=== PATIENT | male | born 1975 | race Caucasian/White ===

== ENCOUNTER 2020-12-20 08:12 | Emergency (ER) | payer SELFPAY ==
[2020-12-20 08:23] VITALS: BP 119/83; PULSE 115; RESP 18; TEMP 36.6; O2SAT 98
--- NOTE | 2020-12-20 08:59 | ED.GENADULT ---
HPI - General Adult General Chief complaint: Skin/Abscess/Foreign Body Stated complaint: Right Toe Pain Time Seen by Provider: 12/20/20 08:47 Source: patient and RN notes reviewed Mode of arrival: ambulatory Limitations: no limitations History of Present Illness HPI narrative: Patient presents today complaining of pain to his right great. States the toenail fell off 2 weeks ago, but does not know how. He is a very poor historian. Cannot tell how long it has been that he has had pain, redness, or swelling. He has not been taking anything for his symptoms prior to arrival. MD complaint: Right great toe pain Related Data Allergies Allergy/AdvReac Type Severity Reaction Status Date / Time No Known Allergies Allergy Verified 12/20/20 08:38 Review of Systems Review of Systems: CONSTITUTIONAL: Denies body aches, fever, chills, or sweats. EYES: Denies visual changes, redness, or discharge. ENT: Denies rhinorrhea, congestion, sore throat, or otalgia. CARDIOVASCULAR: Denies chest pain, palpitations, or edema. RESPIRATORY: Denies cough or dyspnea. GASTROINTESTINAL: Denies abdominal pain, nausea, vomiting, or diarrhea. GENITOURINARY: Denies dysuria or hematuria. SKIN: Denies rash, itching, or wounds. MUSCULOSKELETAL: Denies back pain or myalgia.+ Great toe pain NEUROLOGIC: Denies headache, numbness, tingling, or weakness. PSYCH: Denies depression or anxiety. PMFSH Comments At time of signature, I have reviewed and agree with nursing past medical, surgical, social and family history unless otherwise noted. Please see nursing chart for further information. There is no relevant family history pertinent to the presenting complaint Exam Narrative: GENERAL: Well-appearing, well-nourished. Distress out of proportion to exam findings. Patient moaning in between falling asleep on the exam table HEAD: Normocephalic, atraumatic. EYES: EOMI. No redness or drainage. Conjunctivae normal. ENT: Mucous membranes pink and moist. NECK: Normal AROM. CHEST: No respiratory distress. EXTREMITIES: Right great toe: Erythematous and moderately edematous. Small amount of white purulent drainage at the toenail base. Toenail is missing. Toenail bed is dirty. SKIN: Warm, dry, no rash. Capillary refill normal. Normal skin turgor. NEURO: No focal deficits. Alert and oriented x3. Gait steady. PSYCH: Normal affect. No signs of depression or anxiety. Course Vital Signs Vital signs: Vital Signs Temperature 97.8 F 12/20/20 08:23 Pulse Rate 115 H 12/20/20 08:23 Respiratory Rate 18 12/20/20 08:23 Blood Pressure 119/83 12/20/20 08:23 Pulse Oximetry 98 12/20/20 08:23 Temperature 97.8 F 12/20/20 08:23 Pulse Rate 115 H 12/20/20 08:23 Respiratory Rate 18 12/20/20 08:23 Blood Pressure 119/83 12/20/20 08:23 Pulse Oximetry 98 12/20/20 08:23 Reviewed. Pt has been instructed to follow up with his PCP regarding his elevated blood pressure today. Medical Decision Making Differential Diagnosis Differential Diagnosis: Cellulitis, skin avulsion Vital Signs Vital Signs: Vital Signs Temperature 97.8 F 12/20/20 08:23 Pulse Rate 115 H 12/20/20 08:23 Respiratory Rate 18 12/20/20 08:23 Blood Pressure 119/83 12/20/20 08:23 Pulse Oximetry 98 12/20/20 08:23 Temperature 97.8 F 12/20/20 08:23 Pulse Rate 115 H 12/20/20 08:23 Respiratory Rate 18 12/20/20 08:23 Blood Pressure 119/83 12/20/20 08:23 Pulse Oximetry 98 12/20/20 08:23 Critical Care Time Critical Care Time Critical Care Time: No Discharge Plan Discharge Clinical Impression: Cellulitis of great toe Qualifiers: Laterality: right Qualified Code(s): L03.031 - Cellulitis of right toe Patient Disposition: Home, Self-Care Condition: Stable Instructions: Antibiotic Form, Cellulitis (ED) Additional Instructions: Please take your antibiotics as prescribed. Take Tylenol or ibuprofen for pain. Soak your foot in warm soapy
== END 2020-12-20 09:15 | disposition home or self-care (01) ==
PROVIDERS: Emergency Provider Nurse Practitioner
DX: L03.031 Cellulitis of right toe (principal)
CPT/HCPCS: 99213; G0463

== ENCOUNTER 2022-05-27 11:55 | Emergency (ER) | payer OTHER, SELFPAY ==
--- NOTE | ~2022-05-27 | XR_ITS ---
XR hip LT 2V w AP pelvis 05/27/2022 15:05 INDICATION: Left hip pain. No trauma. PROCEDURE: AP pelvis and 2 views left hip COMPARISON: No prior studies for comparison. FINDINGS: Fracture, dislocation or subluxation is not identified. There is anatomic alignment. Hips a re symmetric. There is lower lumbar spondylosis. The soft tissues appear within normal limits. No fo reign bodies are identified. IMPRESSION: 1: NO ACUTE BONE OR JOINT ABNORMALITY IDENTIFIED. Reviewed, dictated and finalized at location B.
--- NOTE | ~2022-05-27 | CT_ITS ---
EXAMINATION: CT abdomen pelvis wo con DATE: 05/27/2022 15:11 INDICATION: Left lower back pain TECHNIQUE: Computed tomography (CT) of the abdomen and pelvis was performed without intravenous contr ast. The dose-length product (DLP) was 275.10 mGy-cm. Automated exposure control and iterative recons truction technique were employed. COMPARISON: None FINDINGS: The lung bases are clear. The heart size is normal. Within the limitations of noncontrast e xamination, the liver, spleen, pancreas, gallbladder, and adrenal glands are normal. There is a 2 mm nonobstructing stone of the right kidney. The left kidney is unremarkable. No stones are identified i n the left kidney, the ureters, or the bladder. No hydronephrosis or hydroureter. No pathologically e nlarged abdominal or pelvic lymph nodes are identified. There is no free intraperitoneal gas or evide nce of bowel obstruction. There is mild lumbar spondylosis at L3-4 and L4-5. IMPRESSION: 1. Nonobstructing right nephrolithiasis. Reviewed, dictated and finalized at location F.
[2022-05-27 12:14] VITALS: BP 113/80; PULSE 80; RESP 16; TEMP 36.8; O2SAT 100
[2022-05-27 13:10] LABS: Add Urine Microscopic? YES; Appearance Urine Cloudy (Clear); Bacteria Urine None Seen /hpf; Bilirubin Urine Negative (Negative); Blood Urine Negative (Negative); Color Urine Dark Yellow (Yellow); Glucose Urine UA Negative (Negative); Ketones Urine Negative (Negative); Leukocyte Esterase Ur 2+ LEU/UL (Negative); Mucus Urine Present /lpf; Nitrate Urine Negative (Negative); Protein Urine 1+ mg/dL (Negative); RBC Urine 0-2 /hpf (0-2); Specific Grav Ur 1.038 (1.001-1.035); Squamous Epithelial Cell Urine Occasional /hpf (Few); WBC Urine 51-100 /hpf
--- NOTE | 2022-05-27 14:47 | ED.BACK ---
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 He denies testicular pain and swelling, penile discharge, fever, body aches, chills, IVDU, loss of bowel or bladder control, saddle anesthesia, history of cancer or chronic steroid use, n/v/d, abdominal pain, lower extremity weakness, paresthesias. He reports it is possible he has an STD, but denies penile discharge and testicular pain. <CHERYL Kumar Last Filed: 05/27/22 19:24> Related Data Allergies/Adverse Reactions: Allergies Allergy/AdvReac Type Severity Reaction Status Date / Time No Known Allergies Allergy Verified 12/20/20 08:38 <Kari Doshi PA-C - Last Filed: 05/27/22 19:24> Review of Systems Review of Systems: CONSTITUTIONAL: Denies fever, chills EYES: Denies visual changes, redness, or discharge. ENT: Denies rhinorrhea, congestion, sore throat, or otalgia. CARDIOVASCULAR: Denies chest pain, palpitations, or edema. RESPIRATORY: Denies cough or dyspnea. GASTROINTESTINAL: Denies abdominal pain, nausea, vomiting, or diarrhea. GENITOURINARY: Denies dysuria or hematuria. SKIN: Denies rash or itching. MUSCULOSKELETAL: See HPI NEUROLOGIC: Denies headache, dizziness, or weakness. PSYCHIATRIC: Denies anxiety or depression. <Kari Doshi PA-C - Last Filed: 05/27/22 19:24> Exam Narrative: GENERAL: Well-appearing, well-nourished, and in no acute distress. HEAD: Normocephalic, atraumatic. EYES: PERRLA and EOMI. ENT: Nares clear, no rhinorrhea or epistaxis. Mucous membranes moist. Oropharynx without tonsillar hypertrophy exudate or other lesions. NECK: Supple. No adenopathy or masses. CHEST: Clear to auscultation. No respiratory distress. No wheezes rales or rhonchi HEART: Regular rate and rhythm. No murmur heard. Normal peripheral pulses. ABDOMEN: Soft, nontender, nondistended, normal active bowel sounds. BACK: No midline vertebral spinous tenderness, step-offs or deformities. Tenderness to the left posterior and lateral aspect of iliac crest extending into the left glutes. Lower extremity strength 5 out of 5 bilaterally. Sensation intact throughout. No saddle anesthesia. EHL strength 5 out of 5. Full range of motion of hips. Patient ambulatory without difficulty. EXTREMITIES: Normal range of motion. No edema. SKIN: Warm, dry, no rash. NEURO: No focal deficits. Alert and oriented x3. PSYCH: Normal mood and affect. <Kari Doshi PA-C - Last Filed: 05/27/22 19:24> Course Course Emergency Course: 1646: On reevaluation, patient sleeping, resting in exam bed comfortably. Upon awakening, he is reporting improvement in pain. 1705: Upon discharge, patient writhing in exam bed and thrusting hips into the air reporting pain to his left hip. Pain has migrated throughout visit, at first it was low back, then glute now hip. He has full range of motion of his hip and is actively lifting his hips up off the bed. Stating he needs stronger pain medications. I suspect patient is narcotic seeking as he was sleeping 20 minutes ago without problems. <Kari Doshi PA-C - Last Filed: 05/27/22 19:24> MACHINE PULLER OVER/PA Physician Supervision For this patient encounter, I reviewed the MACHINE PULLER OVER or PA documentation, treatment plan, and medical decision making and I had [id number] time with this patient. I performed all aspects of the MDM as documented. 46-year-old male presenting with hip, back pain with associated dysuria. Vitals within normal limits. UA is concerning for infection. STD panel pending at this time. W
[2022-05-27] MEDS: CYCLOBENZAPRINE HCL 10 MG TABLET PO (15:18)
[2022-05-27] MEDS: ACETAMINOPHEN 500 MG TABLET 1000 MG PO (15:19)
[2022-05-27] MEDS: SODIUM CHLORIDE 0.9% IV 1,000 ML 999 ML IV CONT (15:19)
[2022-05-27] MEDS: CIPROFLOXACIN 400 MG/D5W 200ML 200 ML 200 MG IVPB (15:19)
[2022-05-27] MEDS: IBUPROFEN 600 MG TABLET PO (15:19)
[2022-05-27 15:34] LABS: Basophils Percent Auto 0.4 % (0.2-1.2); Eosinophils Absolute Auto 0.1 K/mm3 (0-0.3); Eosinophils Percent Auto 1.1 % (0-4.4); Hematocrit 42.8 % (42.0-52.0); Hemoglobin 13.9 g/dL (14.0-18.0); Immature Granulocyte Absolute 0.01 K/mm3 (0.00-0.031); Immature Granulocyte Percent A 0.2 % (0-0.5); Lymphocytes Absolute Auto 1.42 K/mm3 (0.9-3.2); Lymphocytes Percent Auto 31.9 % (18.3-44.2); Mean Corpuscular HGB Conc 32.5 g/dl (32-36); Mean Corpuscular Hemoglobin 28.4 pg (26-34); Mean Corpuscular Volume 87.3 fl (80-100); Mean Platelet Volume 8.3 fl (7.4-10.4); Monocytes Absolute Auto 0.2 K/mm3 (0.1-0.6); Monocytes Percent Auto 4.9 % (2.6-8.5); Neutrophils Absolute Auto 2.7 K/mm3 (1.3-6.7); Neutrophils Percent Auto 61.5 % (45.5-73.1); Platelet Count Result 308 k/mm3 (150-375); Red Cell Distribution Width 13.2 % (11.5-14.5); White Blood Count 4.5 K/mm3 (4.5-10.0)
[2022-05-27 15:41] LABS: Alanine Aminotransferase 19 U/L (6-50); Albumin Level 3.7 g/dL (3.5-5.1); Alkaline Phosphatase 74 U/L (38-126); Anion Gap 3 mmol/L (8-16); Aspartate Amino Transferase 30 U/L (17-59); Bilirubin,Total 0.6 mg/dL (0.2-1.3); Blood Urea Nitrogen 12 mg/dL (9-20); Calcium 8.4 mg/dL (8.4-10.2); Carbon Dioxide 31 mmol/L (22-30); Chloride 102 mmol/L (98-107); Estimated CRCL calculation 104 ml/min; Estimated Glomerular Filt Rate > 60; Glucose 109 mg/dL (65-110); Potassium 4.2 mmol/L (3.4-5.0); Sodium 136 mmol/L (137-145)
--- NOTE | 2022-05-27 17:19 | PC.NURSE ---
pt out in hallway screaming that he's going to leave. pt advised RN was pulling pain medication for him. pt states he didn't want our pain meds because all we want to do is make him sleep. pt told he needs to go back to his room to have IV removed prior to him leaving. pt escorted back to room with RN. IV removed. pt walked out without assistance. Kari Doshi PA-C notified.
== END 2022-05-27 17:24 | disposition home or self-care (01) ==
PROVIDERS: Emergency Medicine; Emergency Provider Physician Assistant
DX: N39.0 Urinary tract infection, site not specified (principal); M54.50 Low back pain, unspecified
CPT/HCPCS: 36415; 73502; 74176; 80053; 81001; 85025; 87086; 87491; 87591; 87661; 96365; 99284; A9270; J0744; J7030